=== PATIENT | female | born 1965 | race Caucasian/White ===

== ENCOUNTER 2016-07-29 06:19 | Day surgery (SDC) | payer BC, OTHER ==
--- NOTE | 2016-07-28 12:35 | PCM.PREANE ---
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 Respiratory: Reports: no symptoms Cardiovascular: Reports: no symptoms GI: Reports: no symptoms - PHYSICAL ASSESSMENT Height: 1.75 m Weight: 90.265 kg ASA Class: 1 Mental Status: alert & oriented x3 Dentition: Reports: normal dentition ROM/Head Extension: full Respiratory Status: lungs clear to auscultation bilaterally Cardiovascular Status: regular rate & rhythm, normal S1, S2, no murmur - ALLERGIES Allergies/Adverse Reactions: Allergies Allergy/AdvReac Type Severity Reaction Status Date / Time Penicillins Allergy Rash Verified 06/28/16 08:21 - BLOOD Blood Available: No - ANESTHESIA PLAN Preop Beta Marisela: No Anesthesia Type Planned: MAC - ACKNOWLEDGEMENTS Pt an appropriate candidate for the planned anesthesia: Yes Alternatives and risks of anesthesia discussed w pt/guardian: Yes Pt/Guardian understands and agree with anesthesia plan: Yes PreAnesthesia Questionnaire Cardiovascular History: Reports: Other (see below) Other Cardiovascular History: states has heart murmur Genitourinary History: Reports: None 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
[~2016-07-29 06:19] MED LIST: Lactated Ringers 1,000 ML IV SCH; Sodium Chloride 0.9% 10 ML Syringe FLUSH PRN; Sodium Chloride 0.9% 2.5 ML Syringe FLUSH PRN
[2016-07-29] MEDS ORDERED: Propofol 200 MG/20 ML SDV ONE ×2 (07:27→07:30)
[2016-07-29] MEDS ORDERED: Lidocaine 2% 5 ML SDV ONE (07:27)
[2016-07-29] MEDS ORDERED: Midazolam 1 MG/ML 2 ML SDV ONE (07:27)
[2016-07-29] MEDS ORDERED: fentaNYL 100 MCG/2 ML SDV ONE (07:27)
--- NOTE | 2016-07-29 08:13 | PCM.OPNOTE ---
- General Post-Op/Procedure Note Date of Surgery/Procedure: 07/29/16 Operative Procedure(s): SCREENING COLONOSCOPY Findings: normal colonoscopy Pre Op Diagnosis: screening colonoscopy Post-Op Diagnosis: screening colonoscopy Anesthesia Technique: MAC Primary Surgeon: Sushila Bell Condition: Good Free Text/Narrative:: 51 year old female that underwent a screening colonoscopy. Findings: normal colonoscopy
[2016-07-29 08:41] VITALS: BP 104/52
--- NOTE | 2016-07-29 09:55 | PCM48HPAN ---
Post Anesthesia Note - EVALUATION WITHIN 48HRS OF ANESTHETIC Vital Signs in Normal Range: Yes Patient Participated in Evaluation: Yes Respiratory Function Stable: Yes Airway Patent: Yes Cardiovascular Function Stable: Yes Hydration Status Stable: Yes Pain Control Satisfactory: Yes Nausea and Vomiting Control Satisfactory: Yes Mental Status Recovered: Yes
--- NOTE | 2016-07-29 09:55 | PCM.POSTAN ---
POST ANESTHESIA ASSESSMENT - MENTAL STATUS Mental Status: alert, oriented - RESPIRATORY Respiratory Status: respiratory rate WNL, airway patent - CARDIOVASCULAR CV Status: pulse rate WNL, blood pressure stable - GASTROINTESTINAL GI Status: no symptoms - POST OP HYDRATION Hydration Status: adequate & stable
--- NOTE | 2016-07-29 12:47 | OR ---
SURGEON: LAINA PETE MD DATE OF PROCEDURE: 07/29/2016 PREOPERATIVE DIAGNOSIS: Screening colonoscopy. POSTOPERATIVE DIAGNOSIS: Screening colonoscopy. PROCEDURE PERFORMED: Colonoscopy. INSTRUMENT USED: Olympus colonoscope. ANESTHESIA: MAC. EXTENT OF EXAM: To the cecum. PREPARATION: Good. LIMITATIONS: None. INDICATIONS FOR EXAMINATION: The patient is a 51-year-old female who presents for her first screening colonoscopy. We discussed the procedure and expected perioperative course. We discussed the risks including bleeding, infection or damage to surrounding structures, including perforation. The patient verbalized understanding and wished to proceed. PROCEDURE IN DETAIL: The patient was brought into the endoscopy suite and placed in the left lateral decubitus position. A time-out was completed verifying the patient's name, age, date of , allergies, and procedure to be performed. Monitored anesthesia care was induced and continuous oxygen was provided via face mask throughout the procedure. After adequate sedation was achieved, a digital rectal exam was performed. This examination was within normal limits. A well-lubricated colonoscope was inserted into the rectum and advanced under direct visualization to the level of cecum. The cecum was identified by both visual and anatomic landmarks. A photograph was taken of the cecal cap as well as with the scope retroflexed within the cecum. The scope was then straightened out and fully withdrawn while examining the color, texture, anatomy, and integrity of mucosa from the cecum to the anal canal. The findings were consistent with normal colonic mucosa. The scope was then brought into the rectum and retroflexed to allow visualization of the anal canal opening. This appeared normal and a photograph was taken. The scope was straightened out and removed from the patient. Cecum to anus time was 6 minutes. The patient was awoken and transferred to the recovery room in stable condition. ENDOSCOPIC DIAGNOSIS: Normal colonoscopy. RECOMMENDATION: Follow up in clinic in 10 years. LAILA / CHA /[id number]
== END 2016-07-29 08:45 | disposition home or self-care (01) ==
LOC: MW.SDS 06:19
PROVIDERS: ATTEND Surgery
PROC: 0DJD8ZZ Inspection of Lower Intestinal Tract, Via Natural or Artificial Opening Endoscopic (ICD-10-PCS; principal; 2016-07-29)
DX: Z12.11 Encounter for screening for malignant neoplasm of colon (principal); F32.9 Major depressive disorder, single episode, unspecified; Z88.0 Allergy status to penicillin; Z79.899 Other long term (current) drug therapy; Z98.51 Tubal ligation status; Z90.710 Acquired absence of both cervix and uterus; Z87.891 Personal history of nicotine dependence
CPT/HCPCS: 45378; J2250; J3010; J7120; J2704

== ENCOUNTER 2017-08-26 09:39 | Emergency (ER) | payer BC ==
[2017-08-26] MEDS ORDERED: Ketorolac 60 MG/2 ML SDV IM ONE ×3 (10:00→10:10)
[2017-08-26] MEDS ORDERED: Tamsulosin 0.4 MG Cap.ER PO ONE (10:01)
--- NOTE | 2017-08-26 10:29 | EDM.PDOC ---
ED HPI GENERAL MEDICAL PROBLEM - General Chief Complaint: Flank Pain Stated Complaint: L SIDE PAIN/BLOOD IN URINE Time Seen by Provider: 08/26/17 09:42 Source of Information: Reports: Patient History Limitations: Reports: No Limitations - History of Present Illness INITIAL COMMENTS - FREE TEXT/NARRATIVE: History of present illness: []Patient awoke at 5 AM with right flank pain and blood in her urine. Review of systems: As per history of present illness and below otherwise all systems reviewed and negative. Past medical history: As per history of present illness and as reviewed below otherwise noncontributory. Surgical history: As per history of present illness and as reviewed below otherwise noncontributory. Social history: No reported history of drug or alcohol abuse. Family history: As per history of present illness and as reviewed below otherwise noncontributory. Physical exam: General: Well developed, well nourished in NAD HEENT: Atraumatic, normocephalic, pupils reactive, negative for conjunctival pallor or scleral icterus, mucous membranes moist, throat clear, neck supple, nontender, trachea midline. Lungs: Clear to auscultation, breath sounds equal bilaterally, chest nontender. Heart: S1S2, regular, negative for clicks, rubs, or JVD. Abdomen: Soft, nondistended, nontender. Negative for masses or hepatosplenomegaly. Negative for costovertebral tenderness. Pelvis: Stable nontender. Genitourinary: Deferred. Rectal: Deferred. Extremities: Atraumatic, negative for cords or calf pain. Neurovascular unremarkable. Neuro: Awake, alert, oriented. Cranial nerves II through XII unremarkable. Cerebellum unremarkable. Motor and sensory unremarkable throughout. Exam nonfocal. Diagnostics: []CT showing a 4 mm left proximal ureteral stone causing mild hydronephrosis and hydroureter, 2 adjacent 5 mm right mid ureteral stones causing mild ureteral dilatation, UA with too numerous to count red cells, 2-4 WBCs and as of nitrites. Therapeutics: []Toradol IM ,Flomax ,refused further pain meds Impression: []Bilateral ureterolithiasis with mild hydronephrosis, UTI Plan: []Bactrim, Flomax, tramadol, ibuprofen, Zofran follow-up with primary care and/ or follow-up with urology in [place]. Return to ER if any symptoms worsen or change. Definitive disposition and diagnosis as appropriate pending reevaluation and review of above. Left Lower Flank Pain Score (Numeric/FACES): 10 - Related Data Allergies Allergy/AdvReac Type Severity Reaction Status Date / Time Penicillins Allergy Rash Verified 08/26/17 09:48 Home Meds: Home Meds Venlafaxine HCl [Venlafaxine HCl ER] 150 mg PO DAILY 06/28/16 [History] Ondansetron HCl [Zofran] 4 mg PO Q4HR #12 tablet 08/26/17 [Rx] Sulfamethoxazole/Trimethoprim [Bactrim Ds Tablet] 1 each PO BID #20 tablet 08/26 [Rx] Tamsulosin HCl [Flomax] 0.4 mg PO DAILY #14 cap.er.24h 08/26/17 [Rx] traMADol HCl [Tramadol HCl] 50 mg PO Q6H PRN #16 tablet 08/26/17 [Rx] Past Medical History Cardiovascular History: Reports: Other (See Below) Other Cardiovascular History: states has heart murmur Genitourinary History: Reports: None 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 (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 Below) Other OB/BYN History: Abnormal Cells Musculoskeletal History: Reports: Back Pain, Chronic Psychiatric History: Reports: Depression - Past Surgical History Head Surgeries/Procedures: Reports: None Female Surgical History: Reports: Hysterectomy Other Female Surgeries/Procedures: Partial Hysterectomy Social & Family History - Family History Family Medical History: Noncontributory - Tobacco Use Smoking Status *Q: Former Smoker Years of Tobacco use: 20 Packs/Tins Daily: 0 Used Tobacco, but Quit: Yes Month/Year Tobacco Last Used: 2014 Second Hand Smoke Exposure: No - Caffeine Use Caffeine Use: Reports: Coffee - Recreational Drug Use Recreational Drug Use: No ED ROS GENERAL - Review of Systems Review Of Systems: See Below (See history of present illness) ED EXAM, RENAL/ - Physical Exam Exam: See Below (See history of present illness) Course - Vital Signs Last Recorded V/S: Last Vital Signs Temp 96.7 F 08/26/17 09:50 Pulse 76 08/26/17 09:50 Resp 16 08/26/17 09:50 BP 117/63 08/26/17 09:50 Pulse Ox 98 08/26/17 09:50 - Orders/Labs/Meds Orders: Active Orders 24 hr Category Date Time Status Abdomen Pelvis wo Cont [CT] Stat Exams 08/26/17 10:01 Taken UA W/MICROSCOPIC [URIN] Stat Lab 08/26/17 09:45 Ordered Labs: Laboratory Tests 08/26/17 Range/Units 09:45 Urine Color RED Urine Appearance CLOUDY Urine pH 5.0 (5.0-8.0) Ur Specific [place] >= 1.030 (1.001-1.035) Urine Protein 100 (NEGATIVE) mg/dL Urine Glucose (UA) NEGATIVE (NEGATIVE) mg/dL Urine Ketones TRACE H (NEGATIVE) mg/dL Urine Occult Blood MODERATE (NEGATIVE) Urine Nitrite POSITIVE H (NEGATIVE) Urine Bilirubin NEGATIVE (NEGATIVE) Urine Urobilinogen 0.2 (<2.0) EU/dL Ur Leukocyte Esterase NEGATIVE (NEGATIVE) Urine RBC TOO NUMBEROUS TO CT H (0-2/HPF) Urine WBC 2-4 (0-5/HPF) Ur Epithelial Cells FEW (NONE-FEW) Urine Bacteria 1+ H (NEGATIVE) Meds: Medications Discontinued Medications Generic Name Dose Route Start Last Admin Trade Name Alliq PRN Reason Stop Dose Admin Ketorolac Tromethamine 60 mg 08/26/17 10:00 Toradol IM 08/26/17 10:01 ONETIME ONE Ketorolac Tromethamine 60 mg 08/26/17 10:01 Toradol IM 08/26/17 10:02 ONETIME ONE Ketorolac Tromethamine 60 mg 08/26/17 10:10 08/26/17 10:11 Toradol IM 08/26/17 10:11 60 mg ONETIME ONE Administration Tamsulosin HCl 0.4 mg 08/26/17 10:01 08/26/17 10:07 Flomax PO 08/26/17 10:02 0.4 mg ONETIME ONE Administration Departure - Departure Time of Disposition: 11:03 Disposition: Home, Self-Care 01 Condition: Good Clinical Impression: Ureterolithiasis UTI (urinary tract infection) Qualifiers: Urinary tract infection type: site unspecified Hematuria presence: with hematuria Qualified Code(s): N39.0 - Urinary tract infection, site not specified ; R31.9 - Hematuria, unspecified - Discharge Information Prescriptions: Ondansetron HCl [Zofran] 4 mg PO Q4HR #12 tablet Sulfamethoxazole/Trimethoprim [Bactrim Ds Tablet] 1 each PO BID #20 tablet Tamsulosin HCl [Flomax] 0.4 mg PO DAILY #14 cap.er.24h traMADol HCl [Tramadol HCl] 50 mg PO Q6H PRN #16 tablet PRN Reason: Pain Referrals: Malissa Em NP [Primary Care Provider] - Forms: ED Department Discharge Additional Instructions: The following information is given to patients seen in the emergency department who are being discharged to home. This information is to outline your options for follow-up care. We provide all patients seen in our emergency department with a follow-up referral. The need for follow-up, as well as the timing and circumstances, are variable depending upon the specifics of your emergency department visit. If you don't have a primary care physician on staff, we will provide you with a referral. We always advise you to contact your personal physician following an emergency department visit to inform them of the circumstance of the visit and for follow-up with them and/or the need for any referrals to a consulting specialist. The emergency department will also refer you to a specialist when appropriate. This referral assures that you have the opportunity for follow-up care with a specialist. All of these measure are taken in an effort to provide you with optimal care, which includes your follow-up. Under all circumstances we always encourage you to contact your private physician who remains a resource for coordinating your care. When calling for follow-up care, please make the office aware that this follow-up is from your recent emergency room visit. If for any reason you are refused follow-up, please contact the [facility] Emergency Department at and asked to speak to the emergency department charge nurse. Tramadol or ibuprofen for pain, Zofran for nausea, Flomax increase urine outflow , Bactrim as directed for infection. Increase fluids follow-up primary care Return to ER if any symptoms worsen or change. [facility] [place] [id number] - My Orders Last 24 Hours: My Active Orders 08/26/17 09:45 UA W/MICROSCOPIC [URIN] Stat 08/26/17 10:01 Abdomen Pelvis wo Cont [CT] Stat - Assessment/Plan Last 24 Hours: My Active Orders 08/26/17 09:45 UA W/MICROSCOPIC [URIN] Stat 08/26/17 10:01 Abdomen Pelvis wo Cont [CT] Stat
[2017-08-26 11:19] VITALS: BP 126/48
--- NOTE | 2017-08-28 10:01 | CT ---
EXAM DATE: 08/26/17 PATIENT'S AGE: 52 Patient: NIMA HARRIOSN Facility: [place], [place] Site . Site : 1965 Study: CT Abdomen/Pelvis [id number]/7/2018 10:23:24 AM Ordering Physician: Justin Loredo Final Report: INDICATION: Abdominal pain. TECHNIQUE: Noncontrast CT abdomen and pelvis with coronal sagittal re-formatted images obtained. No comparison studies are available. FINDINGS: The lung bases are clear. The heart size is normal. No pericardial effusion. The unenhanced liver spleen pancreas adrenal glands gallbladder appears unremarkable. 4 mm left proximal ureteral stone causing mild hydronephrosis and hydroureter. Additional nonobstructing small punctate stone in the left lower pole. There are 2 adjacent 5 mm stones in the right mid ureter with only focal mild ureteral dilatation. There is no significant right-sided hydronephrosis. Urinary bladder is decompressed. No abdominal aortic aneurysm. Normal appendix. Bowel appears otherwise unremarkable. Tiny fat containing umbilical hernia. Hysterectomy. No suspicious bony lesions. IMPRESSION: 1. 4 millimeter left proximal ureteral stone causing mild hydronephrosis and hydroureter. 2. Two adjacent 5 millimeter right mid ureteral stones causing only focal mild ureteral dilatation. Please note that all CT scans at this facility use dose modulation, iterative reconstruction, and/or weight-based dosing when appropriate to reduce radiation dose to as low as reasonably achievable. Dictated by Karma Garcia MD @ Aug 26 2017 10:45AM (Electronic Signature) Report Signed by Proxy. KASSI
== END 2017-08-26 11:22 | disposition home or self-care (01) ==
LOC: MW.ED 09:39
DX: N13.2 Hydronephrosis with renal and ureteral calculous obstruction (principal); N39.0 Urinary tract infection, site not specified; F32.9 Major depressive disorder, single episode, unspecified; Z79.899 Other long term (current) drug therapy; Z88.0 Allergy status to penicillin; Z90.49 Acquired absence of other specified parts of digestive tract; Z87.891 Personal history of nicotine dependence
CPT/HCPCS: 74176; 81001; 96372; 99284; A9270; J1885

== ENCOUNTER 2018-06-07 23:19 | Emergency (ER) | payer BC ==
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
[2018-06-08 00:07] VITALS: BP 124/66
== END 2018-06-08 00:07 | disposition home or self-care (01) ==
LOC: MW.ED 23:19
DX: M62.830 Muscle spasm of back (principal); Z88.0 Allergy status to penicillin; Z79.899 Other long term (current) drug therapy
CPT/HCPCS: 99283

== ENCOUNTER 2018-09-21 09:09 | Emergency (ER) | payer BC ==
[2018-09-21] MEDS ORDERED: Sodium Chloride 0.9% 2.5 ML Syringe FLUSH PRN (09:18)
[2018-09-21] MEDS ORDERED: Aspirin 81 MG Tab.Chew PO ONE (09:18)
[2018-09-21] MEDS ORDERED: Sodium Chloride 0.9% 10 ML Syringe FLUSH PRN (09:18)
[2018-09-21] MEDS ORDERED: Pantoprazole 40 MG Vial IVPUSH ONE (09:18)
--- NOTE | 2018-09-21 09:21 | EDM.PDOC ---
ED HPI GENERAL MEDICAL PROBLEM - General Stated Complaint: CHEST PAINS Time Seen by Provider: 09/21/18 09:12 - History of Present Illness INITIAL COMMENTS - FREE TEXT/NARRATIVE: HISTORY AND PHYSICAL: History of present illness: The patient is a 53-year-old male with no significant cardiac pulmonary or abdominal history and presents with complaints of discomfort which is pressure- like in the epigastric area that started at 7:30 PM last evening. She said it was constant all night and she didn't sleep very well until about 5:30 this morning when it subsided. She says it was a pressure-like sensation and radiated to her back as well as around her upper abdomen and it was not associated with nausea vomiting diaphoresis or shortness of breath. The pain did not radiate to her shoulders or her jaw. She did have some neck discomfort but it seemed to be separate from the chest discomfort. She says that it subsided at 5:30 and she did not take anything specifically for the pain. She said that she had some nausea after the pain subsided to about 7:00 this morning and she's no longer nauseated nor does she have any pain. At its worse last evening the pain was a 7 or 8/10. She ate breakfast and has had a normal morning and came here for evaluation. She is unsure why she did not come in last evening. The patient has no cardiac history no leg pain or swelling and no GI history. She has no history of food intolerance and denies . She is not sure she went through the menopause yet. The patient has no significant family or social history. Currently she is asymptomatic but would like evaluation. She does add at the end of my initial interview that she did have an episode where she broke out into a sweat while at work but had no discomfort or other symptomatology and that has subsided Review of systems: As per history of present illness and below otherwise all systems reviewed and negative. Past medical history: As per history of present illness and as reviewed below otherwise noncontributory. Surgical history: As per history of present illness and as reviewed below otherwise noncontributory. Social history: No reported history of drug or alcohol abuse. Family history: As per history of present illness and as reviewed below otherwise noncontributory. Physical exam: General: Well-developed well-nourished female who is nontoxic and vital signs are noted by me HEENT: Atraumatic, normocephalic, negative for conjunctival pallor or scleral icterus, mucous membranes moist, throat clear, neck supple, nontender, trachea midline. Lungs: Clear to auscultation, breath sounds equal bilaterally, chest nontender. Heart: S1S2, regular, negative for clicks, rubs, or JVD. Abdomen: Soft, nondistended, nontender. Negative for masses or hepatosplenomegaly. Negative for costovertebral tenderness. On palpation I cannot reproduce any pain or tenderness in the upper abdomen Pelvis: Stable nontender. Genitourinary: Deferred. Rectal: Deferred. Extremities: Atraumatic, negative for cords or calf pain. Neurovascular unremarkable. No pedal edema Neuro: Awake, alert, oriented. Cranial nerves II through XII unremarkable. Cerebellum unremarkable. Motor and sensory unremarkable throughout. Exam nonfocal. Diagnostics: EKG CBC CMP amylase lipase H. pylori chest abdominal x-rays Therapeutics: IV O2 monitor Protonix aspirin Patient has been asymptomatic while here in the ED. I have discussed with her at length her testing results and my recommendation for observation admission due to her age and the history she gives of her episode last evening and of her brief episode at work today. She is aware of my concerns and accepts them but declines admission and would like to pursue outpatient follow-up with her provider Josee Em at [facility]. She is awake alert and oriented and accepts the risks involved andthat she can return if there is any change or evolution of her symptoms. Impression: Episode of chest pain, declining admission Definitive disposition and diagnosis as appropriate pending reevaluation and review of above. - Related Data Allergies Allergy/AdvReac Type Severity Reaction Status Date / Time Penicillins Allergy Rash Verified 09/21/18 09:20 Home Meds: Home Meds Venlafaxine HCl [Venlafaxine HCl ER] 150 mg PO DAILY 06/28/16 [History] Past Medical History HEENT History: Reports: None Cardiovascular History: Reports: Other (See Below) Other Cardiovascular History: states has heart murmur Respiratory History: Reports: None Gastrointestinal History: Reports: None Genitourinary History: Reports: None IMMIGRATION ATTORNEY History: Reports: Other (See Below) Other IMMIGRATION ATTORNEY History: Abnormal Cells Musculoskeletal History: Reports: Back Pain, Chronic Neurological History: Reports: None Psychiatric History: Reports: Depression Endocrine/Metabolic History: Reports: None Hematologic History: Reports: None Immunologic History: Reports: None Oncologic (Cancer) History: Reports: None Dermatologic History: Reports: None - Infectious Disease History Infectious Disease History: Reports: None - Past Surgical History Head Surgeries/Procedures: Reports: None Female Surgical History: Reports: Hysterectomy Other Female Surgeries/Procedures: Partial Hysterectomy Social & Family History - Family History Family Medical History: Noncontributory - Caffeine Use Caffeine Use: Reports: Coffee ED ROS GENERAL - Review of Systems Review Of Systems: ROS reveals no pertinent complaints other than HPI. ED EXAM, GENERAL - Physical Exam Exam: See Below (See dictation) Course - Vital Signs Last Recorded V/S: Last Vital Signs Temp 36.3 C 09/21/18 09:24 Pulse 87 09/21/18 09:24 Resp 16 09/21/18 09:24 BP 125/61 09/21/18 09:24 Pulse Ox 99 09/21/18 09:24 - Orders/Labs/Meds Orders: Active Orders 24 hr Category Date Time Status Cardiac Monitoring [RC] . DIRECTED Care 09/21/18 09:17 Active EKG Documentation Completion [RC] STAT Care 09/21/18 09:17 Active Oxygen Therapy, ED [RC] ASDIRECTED Care 09/21/18 09:16 Active Pulse Oximetry [RC] ASDIRECTED Care 09/21/18 09:17 Active Sodium Chloride 0.9% [Saline Flush] Med 09/21/18 09:18 Active 10 ml FLUSH ASDIRECTED PRN Sodium Chloride 0.9% [Saline Flush] Med 09/21/18 09:18 Active 2.5 ml FLUSH ASDIRECTED PRN Saline Lock Insert [OM.PC] Stat Oth 09/21/18 09:16 Ordered Medication Orders Sodium Chloride (Saline Flush) 10 ml FLUSH ASDIRECTED PRN PRN Reason: Keep Vein Open Sodium Chloride (Saline Flush) 2.5 ml FLUSH ASDIRECTED PRN PRN Reason: Keep Vein Open Labs: Laboratory Tests 09/21/18 09/21/18 09/21/18 Range/Units 09:31 09:31 09:31 WBC 8.66 (4.0-11.0) K/uL RBC 4.65 (4.30-5.90) M/uL Hgb 13.6 (12.0-16.0) g/dL Hct 42.0 (36.0-46.0) % MCV 90.3 (80.0-98.0) fL MCH 29.2 (27.0-32.0) pg MCHC 32.4 (31.0-37.0) g/dL RDW Std Deviation 43.3 (28.0-62.0) fl RDW Coeff of Schuyler 13 (11.0-15.0) % Plt Count 300 (150-400) K/uL MPV 10.40 (7.40-12.00) fL Neut % (Auto) 73.5 (48.0-80.0) % Lymph % (Auto) 19.5 (16.0-40.0) % [place] % (Auto) 5.4 (0.0-15.0) % Eos % (Auto) 1.3 (0.0-7.0) % Baso % (Auto) 0.3 (0.0-1.5) % Neut # (Auto) 6.4 H (1.4-5.7) K/uL Lymph # (Auto) 1.7 (0.6-2.4) K/uL [place] # (Auto) 0.5 (0.0-0.8) K/uL Eos # (Auto) 0.1 (0.0-0.7) K/uL Baso # (Auto) 0.0 (0.0-0.1) K/uL Nucleated RBC % 0.0 /100WBC Nucleated RBCs # 0 K/uL Sodium 139 (136-145) mmol/L Potassium 4.3 (3.5-5.1) mmol/L Chloride 103 (98-107) mmol/L Carbon Dioxide 28.3 (21.0-32.0) mmol/L BUN 17 (7.0-18.0) mg/dL Creatinine 0.9 (0.6-1.0) mg/dL Est Cr Clr Drug Dosing 75.55 mL/min Estimated GFR (MDRD) > 60.0 ml/min Glucose 104 (74-106) mg/dL Calcium 8.8 (8.5-10.1) mg/dL Total Bilirubin 0.6 (0.2-1.0) mg/dL AST 165 H (15-37) IU/L ALT 213 H (14-63) IU/L Alkaline Phosphatase 96 (46-116) U/L Troponin I < 0.050 (0.000-0.056) ng/mL Total Protein 7.8 (6.4-8.2) g/dL Albumin 4.0 (3.4-5.0) g/dL Globulin 3.8 (2.6-4.0) g/dL Albumin/Globulin Ratio 1.1 (0.9-1.6) Amylase 29 (25-115) U/L Lipase 137 (73-393) U/L H. pylori IgG Antibody NEGATIVE (NEG) Meds: Medications Generic Name Dose Route Start Last Admin Trade Name Freq PRN Reason Stop Dose Admin Sodium Chloride 10 ml 09/21/18 09:18 Saline Flush FLUSH ASDIRECTED PRN Keep Vein Open Sodium Chloride 2.5 ml 09/21/18 09:18 Saline Flush FLUSH ASDIRECTED PRN Keep Vein Open Discontinued Medications Generic Name Dose Route Start Last Admin Trade Name Freq PRN Reason Stop Dose Admin Aspirin 324 mg 09/21/18 09:18 09/21/18 09:33 Aspirin PO 09/21/18 09:19 324 mg ONETIME ONE Administration Sodium Chloride Confirm 09/21/18 09:23 09/21/18 10:33 Normal Saline Administered 09/21/18 09:24 Not Given Dose 20 mls @ as directed .ROUTE .STK-MED ONE Pantoprazole Sodium 80 mg 09/21/18 09:18 09/21/18 09:41 Protonix Iv IVPUSH 09/21/18 09:19 80 mg .BOLUS ONE Administration Departure - Departure Time of Disposition: 10:47 Disposition: Home, Self-Care 01 Condition: Good Clinical Impression: Chest pain Qualifiers: Chest pain type: unspecified Qualified Code(s): R07.9 - Chest pain, unspecified - Discharge Information Referrals: PCP,Unknown [Primary Care Provider] - Additional Instructions: The following information is given to patients seen in the emergency department who are being discharged to home. This information is to outline your options for follow-up care. We provide all patients seen in our emergency department with a follow-up referral. The need for follow-up, as well as the timing and circumstances, are variable depending upon the specifics of your emergency department visit. If you don't have a primary care physician on staff, we will provide you with a referral. We always advise you to contact your personal physician following an emergency department visit to inform them of the circumstance of the visit and for follow-up with them and/or the need for any referrals to a consulting specialist. The emergency department will also refer you to a specialist when appropriate. This referral assures that you have the opportunity for followup care with a specialist. All of these measure are taken in an effort to provide you with optimal care, which includes your followup. Under all circumstances we always encourage you to contact your private physician who remains a resource for coordinating your care. When calling for followup care, please make the office aware that this follow-up is from your recent emergency room visit. If for any reason you are refused follow-up, please contact the [facility] emergency department at and ask to speak to the emergency department charge nurse. [address] [place] [address] Please call and schedule a follow-up appointment with your provider at the clinic, Josee Em, as we discussed. Please return to ER as needed and as discussed - My Orders Last 24 Hours: My Active Orders 09/21/18 09:16 Oxygen Therapy, ED [RC] ASDIRECTED Saline Lock Insert [OM.PC] Stat 09/21/18 09:17 Cardiac Monitoring [RC] . DIRECTED EKG Documentation Completion [RC] STAT Pulse Oximetry [RC] ASDIRECTED 09/21/18 09:18 Sodium Chloride 0.9% [Saline Flush] 10 ml FLUSH ASDIRECTED PRN Sodium Chloride 0.9% [Saline Flush] 2.5 ml FLUSH ASDIRECTED PRN - Assessment/Plan Last 24 Hours: My Active Orders 09/21/18 09:16 Oxygen Therapy, ED [RC] ASDIRECTED Saline Lock Insert [OM.PC] Stat 09/21/18 09:17 Cardiac Monitoring [RC] . DIRECTED EKG Documentation Completion [RC] STAT Pulse Oximetry [RC] ASDIRECTED 09/21/18 09:18 Sodium Chloride 0.9% [Saline Flush] 10 ml FLUSH ASDIRECTED PRN Sodium Chloride 0.9% [Saline Flush] 2.5 ml FLUSH ASDIRECTED PRN
[2018-09-21] MEDS ORDERED: Sodium Chloride 0.9% 20 ML ONE (09:23)
[2018-09-21 10:05] LABS: CHLORIDE,CL 103 mmol/L (98-107); SODIUM,NA 139 mmol/L (136-145)
--- NOTE | 2018-09-21 10:10 | CR ---
EXAMINATION: Portable chest radiograph. HISTORY: Shortness of breath. FINDINGS: The trachea is midline. The cardiomediastinal silhouette is within normal limits. No pulmonary infiltrates, effusions or pneumothorax. Old left-sided rib fractures are noted. IMPRESSION: No acute cardiopulmonary process.
--- NOTE | 2018-09-21 10:11 | CR ---
EXAMINATION: Abdomen HISTORY: Pain COMPARISON: CT dated 08/26/2017 TECHNIQUE: Upright views of the abdomen FINDINGS: There is no free air under the diaphragms. There is a nonobstructive bowel gas pattern. No abnormal calcifications project over the kidneys. Visualized osseous structures appear normal. Tubal ligation clips are noted. IMPRESSION: 1. Unremarkable abdominal films.
[2018-09-21 11:09] VITALS: BP 120/59
== END 2018-09-21 10:55 | disposition home or self-care (01) ==
LOC: MW.ED 09:09
DX: R07.89 Other chest pain (principal); Z88.0 Allergy status to penicillin; Z79.899 Other long term (current) drug therapy
CPT/HCPCS: 36415; 71045; 74018; 80053; 82150; 83690; 84484; 85025; 86677; 93005; 96374; 99285; A9270; C9113